=== PATIENT | female | born 1955 | race Caucasian/White ===

== ENCOUNTER → 2016-04-16 | Outpatient (REF) | payer OTHER ==
[2016-04-16 11:16] LABS: BASO % 0.4 % (0.0-1.0); EOS # 0.2 K/mm3 (0.0-0.50); EOS % 4.5 % (0.0-3.0); LARGE UNSTAINED CELL # 0.1 K/mm3 (0.0-0.4); LARGE UNSTAINED CELL % 1.8 % (0.0-4.0); LYMPH # 1.4 K/mm3 (1.5-4.5); LYMPH % 25.7 % (24.0-44.0); MEAN CORPUSCULAR HEMOGLOBIN 31.1 pg (27.0-33.0); MEAN CORPUSCULAR HGB CONC 32.5 g/dl (32.0-36.5); MEAN CORPUSCULAR VOLUME 95.7 fl (80.0-96.0); MONO # 0.3 K/mm3 (0.0-0.8); MONO % 5.9 % (0.0-5.0); NEUTROPHILS # 3.2 K/mm3 (1.8-7.7); NEUTROPHILS % 61.7 % (36.0-66.0); PLATELET COUNT, AUTOMATED 177 k/mm3 (150-450); RED CELL DISTRIBUTION WIDTH 12.4 % (11.5-14.5); WHITE BLOOD COUNT 5.2 K/mm3 (4.0-10.0)
[2016-04-16 11:43] LABS: ALBUMIN 3.7 GM/DL (3.2-5.2); ALBUMIN/GLOBULIN RATIO 1.28 (1.00-1.93); ALKALINE PHOSPHATASE 188 U/L (45-117); ALT/SGPT 48 U/L (12-78); ANION GAP 5 MEQ/L (8-16); AST/SGOT 46 U/L (15-37); BILIRUBIN,TOTAL 0.5 MG/DL (0.2-1.0); BLOOD UREA NITROGEN 20 MG/DL (7-18); CALCIUM LEVEL 9.2 MG/DL (8.8-10.2); CARBON DIOXIDE LEVEL 34 MEQ/L (21-32); CHLORIDE LEVEL 107 MEQ/L (98-107); CHOLESTEROL LEVEL 202 MG/DL (<200); CREATININE FOR GFR 0.81 MG/DL (0.55-1.02); GLOMERULAR FILTRATION RATE > 60.0 (>45); GLUCOSE, FASTING 82 MG/DL (80-110); POTASSIUM SERUM 4.3 MEQ/L (3.5-5.1); SODIUM LEVEL 146 MEQ/L (136-145); TOTAL PROTEIN 6.6 GM/DL (6.4-8.2); TRIGLYCERIDES LEVEL 101 MG/DL (<150)
== END ==
LOC: M SFHCPLAZ 08:34
PROVIDERS: ATTEND Physician Assistant Medical
DX: G47.33 Obstructive sleep apnea (adult) (pediatric) (principal); E78.2 Mixed hyperlipidemia; E55.9 Vitamin D deficiency, unspecified

== ENCOUNTER → 2016-05-26 | Outpatient (CLI) | payer OTHER ==
--- NOTE | 2016-05-26 13:49 | REPMRS ---
Patient History The patient states she had a clinical breast exam in 05/2016. Family history of prostate cancer in father at age 60, ovarian cancer in mother at age 39, and prostate cancer in brother at age 55. Benign excisional biopsy of the left breast, 2008. 2 benign stereotatic breast biopsies of the left breast, 2007. Benign excisional biopsy of the right breast, 2001. Took estrogen for 3 years. Digital Woman Screen Mammo: May 26, 2016 - Exam #: [id number] Bilateral CC and MLO view(s) were taken. Technologist: Abbey Thomas, Technologist Prior study comparison: May 26, 2015, digital woman screen mammo performed at [facility]. May 23, 2014, digital woman screen mammo performed at [facility]. FINDINGS: There are scattered fibroglandular densities. There has been no change in the appearance of the mammogram from the prior studies. There is a mild amount of residual fibroglandular tissue which is fairly symmetric. There is no interval development of dominant mass, architectural distortion, or clustered microcalcification suggestive of malignancy. ASSESSMENT: BI-RADS/ACR category 1 mammogram. Negative. Recommendation Routine screening mammogram in 1 year (for women over age 40). This mammogram was interpreted with the aid of an FDA-approved computer-aided dectection system. Electronically Signed By: Murray Roman MD 05/26/16 0174
== END ==
LOC: M WHC 12:54
PROVIDERS: ATTEND Nurse Practitioner Family
DX: Z12.31 Encounter for screening mammogram for malignant neoplasm of breast (principal)

== ENCOUNTER → 2017-03-10 | Outpatient (CLI) | payer OTHER ==
[2017-03-10 10:49] LABS: HEMATOCRIT 41.7 % (36.0-47.0); HEMOGLOBIN 13.7 g/dl (12.0-16.0); MEAN CORPUSCULAR HGB CONC 32.9 g/dl (32.0-36.5); MEAN CORPUSCULAR VOLUME 94.3 fl (80.0-96.0); PLATELET COUNT, AUTOMATED 212 10^3/uL (150-450); RED BLOOD COUNT 4.42 10^6/uL (4.00-5.40); RED CELL DISTRIBUTION WIDTH 11.9 % (11.5-14.5); WHITE BLOOD COUNT 6.6 10^3/uL (4.0-10.0)
[2017-03-10 10:56] LABS: APPEARANCE, URINE CLEAR (CLEAR); BACTERIA, URINE AUTO NEGATIVE (NEGATIVE); BILIRUBIN, URINE AUTO NEGATIVE (NEGATIVE); BLOOD, URINE BLOOD NEGATIVE (NEGATIVE); COLOR, URINE YELLOW (YELLOW); GLUCOSE, URINE (UA) AUTO NEGATIVE (NEGATIVE); KETONE, URINE AUTO NEGATIVE (NEGATIVE); LEUKOCYTE ESTERASE, URINE AUTO NEGATIVE (NEGATIVE); MUCUS, URINE SMALL (NEGATIVE); NITRITE, URINE AUTO NEGATIVE (NEGATIVE); PROTEIN, URINE AUTO NEGATIVE (NEGATIVE); RBC, URINE AUTO 1 /HPF (0-3); SPECIFIC GRAVITY URINE AUTO 1.006 (1.002-1.035); SQUAMOUS EPITHELIAL CELL UR AU 1 /HPF (0-6); UROBILINOGEN, URINE AUTO 0.2 mg/dL (0.0-2.0); WBC, URINE AUTO 0 /HPF (0-3)
[2017-03-10 10:58] LABS: INR 0.94; PROTHROMBIN TIME 12.7 SECONDS (12.4-14.5)
[2017-03-10 11:04] LABS: ALBUMIN/GLOBULIN RATIO 1.14 (1.00-1.93); ALKALINE PHOSPHATASE 180 U/L (45-117); ALT/SGPT 34 U/L (12-78); ANION GAP 5 MEQ/L (8-16); AST/SGOT 28 U/L (7-37); BILIRUBIN,TOTAL 0.6 MG/DL (0.2-1.0); BLOOD UREA NITROGEN 17 MG/DL (7-18); CALCIUM LEVEL 9.1 MG/DL (8.8-10.2); CARBON DIOXIDE LEVEL 33 MEQ/L (21-32); CHLORIDE LEVEL 104 MEQ/L (98-107); CREATININE FOR GFR 0.78 MG/DL (0.55-1.02); GLOMERULAR FILTRATION RATE > 60.0 (>45); GLUCOSE, FASTING 84 MG/DL (80-110); POTASSIUM SERUM 4.2 MEQ/L (3.5-5.1); SODIUM LEVEL 142 MEQ/L (136-145); TOTAL PROTEIN 7.5 GM/DL (6.4-8.2)
[2017-03-10 11:26] LABS: ERYTHROCYTE SEDIMENTATION RATE 33 mm/hr (0-30)
== END ==
LOC: M ADMPAT 09:01
DX: Z01.818 Encounter for other preprocedural examination (principal); M17.11 Unilateral primary osteoarthritis, right knee
CPT/HCPCS: 71046

== ENCOUNTER 2017-03-21 06:27 | Inpatient (IN) | payer OTHER ==
[2017-03-21] MEDS ORDERED: LR 1,000 ML IV (06:45)
[2017-03-21] MEDS ORDERED: LIDOCAINE 1% MDV 20ML VIAL SQ (06:45)
[2017-03-21] MEDS: LR 1,000 ML IV ×3 (08:21→13:45)
[2017-03-21] MEDS: ACETAMINOPHEN 500 MG TAB PO (08:21)
[2017-03-21] MEDS ORDERED: fentaNYL 100 MCG/2 ML INJECTION (J3010) As Ordered ×2 (09:01→09:59)
[2017-03-21] MEDS ORDERED: MIDAZOLAM INJ 2 MG/2 ML VIAL (J2250) As Ordered ×3 (09:01→10:48)
[2017-03-21] MEDS: MIDAZOLAM INJ 2 MG/2 ML VIAL (J2250) IV ×2 (09:23→09:24)
[2017-03-21] MEDS: fentaNYL 100 MCG/2 ML INJECTION (J3010) IV (09:23)
[2017-03-21] MEDS ORDERED: PROPOFOL 200 MG/20 ML VIAL As Ordered ×5 (09:59→12:06)
[2017-03-21] MEDS ORDERED: LIDOCAINE 1% MDV 20ML VIAL (10:54)
[2017-03-21] MEDS ORDERED: ROPIvacaine 0.5% 30 ML INJECTION (J2795 PER 1MG) (10:54)
[2017-03-21] MEDS ORDERED: dexameTHASONE 10 MG/1 ML VIAL PRES.FREE (J1100) (10:54)
[2017-03-21] MEDS: EPINEPHrine INJ 1 MG/ML 1ML AMP As Ordered (10:56)
[2017-03-21] MEDS: TRANEXAMIC ACID 100 MG/ML 10ML VIAL As Ordered (10:56)
[2017-03-21] MEDS: ceFAZolin 1GM INJ (J0690 PER 500MG) As Ordered (10:57)
[2017-03-21] MEDS: BUPIVACAINE LIPOSOME/PF 1.3% 20 ML VIAL (13.3MG/ML)(EXPAREL) As Ordered (12:18)
[2017-03-21] MEDS: BUPIVACAINE HCL 0.25% 30 ML VIAL As Ordered (12:19)
[2017-03-21] MEDS ORDERED: MORPHINE 1MG/ML IN 0.9% NACL 100ML IV BAG As Ordered (12:41)
[2017-03-21] MEDS ORDERED: NALOXONE INJ 0.4 MG/1 ML VIAL (J2310) IV (13:00)
[2017-03-21] MEDS ORDERED: ONDANSETRON 4MG/2ML VIAL (J2405) IV ×2 (13:00→13:45)
[2017-03-21] MEDS ORDERED: NALBUPHINE HCL 10 MG/ML AMP (J2300) IV (13:00)
[2017-03-21] MEDS ORDERED: diphenhydrAMINE INJ 50MG/ML VIAL (J1200) IV (13:00)
[2017-03-21] MEDS ORDERED: EPIDURAL/PCA KEYS XX (13:00)
[2017-03-21] MEDS: MORPHINE 1MG/ML IN 0.9% NACL 100ML IV BAG IV (13:15)
[2017-03-21] MEDS ORDERED: HYDROmorphone HCL 1 MG/ML SYRINGE (J1170) IV (13:45)
[2017-03-21] MEDS ORDERED: fentaNYL 100 MCG/2 ML INJECTION (J3010) IV (13:45)
[2017-03-21] MEDS ORDERED: ACETAMINOPHEN TAB 650MG DOSE (2X325MG) PO (13:45)
[2017-03-21] MEDS ORDERED: PERCOCET 5MG/325MG TAB PO (13:45)
[2017-03-21] MEDS ORDERED: FLEET ENEMA PR (13:45)
[2017-03-21 16:34] LABS: HEMATOCRIT 37.6 % (36.0-47.0); HEMOGLOBIN 12.4 g/dl (12.0-16.0); MEAN CORPUSCULAR HEMOGLOBIN 31.2 pg (27.0-33.0); MEAN CORPUSCULAR VOLUME 94.5 fl (80.0-96.0); PLATELET COUNT, AUTOMATED 184 10^3/uL (150-450); RED BLOOD COUNT 3.98 10^6/uL (4.00-5.40); WHITE BLOOD COUNT 11.2 10^3/uL (4.0-10.0)
[2017-03-21 16:55] LABS: ANION GAP 6 MEQ/L (8-16); BLOOD UREA NITROGEN 15 MG/DL (7-18); CALCIUM LEVEL 8.2 MG/DL (8.8-10.2); CARBON DIOXIDE LEVEL 28 MEQ/L (21-32); CHLORIDE LEVEL 108 MEQ/L (98-107); CREATININE FOR GFR 0.77 MG/DL (0.55-1.02); GLOMERULAR FILTRATION RATE > 60.0 (>45); GLUCOSE, FASTING 208 MG/DL (80-110); POTASSIUM SERUM 3.9 MEQ/L (3.5-5.1); SODIUM LEVEL 142 MEQ/L (136-145)
[2017-03-21] MEDS: VENLAFAXINE **XR** 75MG CAPSULE PO (17:49)
[2017-03-21] MEDS: WARFARIN SOD 5 MG TAB PO (17:49)
[2017-03-21] MEDS: ASCORBIC ACID 500 MG TAB PO (20:28)
[2017-03-21] MEDS: ROSUVASTATIN 10 MG TAB (CRESTOR) PO (20:28)
[2017-03-22] MEDS ORDERED: ONDANSETRON 4 MG TAB (S0181) PO (06:45)
[2017-03-22] MEDS ORDERED: PERCOCET 5MG/325MG TAB PO (06:45)
[2017-03-22 07:40] LABS: HEMOGLOBIN 11.5 g/dl (12.0-16.0); MEAN CORPUSCULAR HGB CONC 32.9 g/dl (32.0-36.5); MEAN CORPUSCULAR VOLUME 94.3 fl (80.0-96.0); PLATELET COUNT, AUTOMATED 181 10^3/uL (150-450); RED BLOOD COUNT 3.71 10^6/uL (4.00-5.40); WHITE BLOOD COUNT 11.9 10^3/uL (4.0-10.0)
[2017-03-22 07:48] LABS: INR 1.23; PROTHROMBIN TIME 15.8 SECONDS (12.4-14.5)
[2017-03-22 07:58] LABS: ANION GAP 7 MEQ/L (8-16); BLOOD UREA NITROGEN 14 MG/DL (7-18); CALCIUM LEVEL 8.5 MG/DL (8.8-10.2); CARBON DIOXIDE LEVEL 27 MEQ/L (21-32); CHLORIDE LEVEL 106 MEQ/L (98-107); GLOMERULAR FILTRATION RATE > 60.0 (>45); GLUCOSE, FASTING 122 MG/DL (80-110); POTASSIUM SERUM 3.8 MEQ/L (3.5-5.1); SODIUM LEVEL 140 MEQ/L (136-145)
[2017-03-22] MEDS: VITAMIN B COMPLEX/VIT C CAP PO (09:29)
[2017-03-22] MEDS: MIRALAX *UNIT DOSE* 17GM PACKET PO (09:29)
[2017-03-22] MEDS: MOM 30ML SUSPENSION UDC PO (09:29)
[2017-03-22] MEDS: SENOKOT S TAB PO (09:30)
[2017-03-22] MEDS: VITAMIN D 1,000 INTERNATIONAL UNITS TABLET PO (09:30)
[2017-03-22] MEDS: VENLAFAXINE **XR** 75MG CAPSULE PO (09:30)
[2017-03-22] MEDS: PERCOCET 5MG/325MG TAB PO ×2 (09:30→13:39)
[2017-03-22] MEDS: ASCORBIC ACID 500 MG TAB PO (09:30)
[2017-03-22] MEDS: MULTIVITAMINS/MINERALS THERAP 1 TAB PO (09:30)
[2017-03-22] MEDS ORDERED: WARFARIN SOD 5 MG TAB PO (17:00)
== END 2017-03-22 14:10 | disposition home health service (06) | DRG 470 ==
LOC: M OR 06:27 → M MS5PR 14:05
PROC: 0SRC0J9 Replacement of Right Knee Joint with Synthetic Substitute, Cemented, Open Approach (ICD-10-PCS; principal; 2017-03-21 10:17)
DX: M17.11 Unilateral primary osteoarthritis, right knee (principal); Z79.899 Other long term (current) drug therapy; F41.9 Anxiety disorder, unspecified; K21.9 Gastro-esophageal reflux disease without esophagitis; E66.01 Morbid (severe) obesity due to excess calories; Z86.711 Personal history of pulmonary embolism; G47.33 Obstructive sleep apnea (adult) (pediatric); E78.5 Hyperlipidemia, unspecified

== ENCOUNTER → 2017-03-24 | Outpatient (REF) | payer OTHER ==
[2017-03-24 15:31] LABS: INR 2.68; PROTHROMBIN TIME 29.6 SECONDS (12.4-14.5)
== END ==
LOC: M LAB REF 14:44
DX: Z79.01 Long term (current) use of anticoagulants (principal)

== ENCOUNTER → 2017-04-14 | Outpatient (REF) | payer OTHER ==
[2017-04-14 14:14] LABS: INR 2.08; PROTHROMBIN TIME 24.1 SECONDS (12.4-14.5)
== END ==
LOC: M LAB REF 13:36
DX: Z79.01 Long term (current) use of anticoagulants (principal)

== ENCOUNTER → 2017-05-02 | Outpatient (CLI) | payer OTHER ==
[2017-05-02 09:25] LABS: URIC ACID 4.5 MG/DL (2.6-6.0)
[2017-05-02 09:25] LABS: C REACTIVE PROTEIN QUANTITATIV 0.42 MG/DL (0.00-0.30); RHEUMATOID FACTOR QUANT < 10.0 IU/ML (0-15.0)
[2017-05-02 10:03] LABS: ERYTHROCYTE SEDIMENTATION RATE 33 mm/hr (0-30)
== END ==
LOC: M LAB 08:29
DX: M17.0 Bilateral primary osteoarthritis of knee (principal)
CPT/HCPCS: 84550

== ENCOUNTER → 2017-05-27 | Outpatient (CLI) | payer OTHER | LOC: M WHC 09:36 | DX: Z12.31 Encounter for screening mammogram for malignant neoplasm of breast (principal) ==

== ENCOUNTER → 2017-11-09 | Outpatient (CLI) | payer OTHER ==
[2017-11-09 12:30] LABS: HEMATOCRIT 39.9 % (36.0-47.0); MEAN CORPUSCULAR HEMOGLOBIN 30.7 pg (27.0-33.0); MEAN CORPUSCULAR HGB CONC 32.6 g/dl (32.0-36.5); MEAN CORPUSCULAR VOLUME 94.3 fl (80.0-96.0); PLATELET COUNT, AUTOMATED 215 10^3/uL (150-450); RED BLOOD COUNT 4.23 10^6/uL (4.00-5.40); RED CELL DISTRIBUTION WIDTH 12.7 % (11.5-14.5); WHITE BLOOD COUNT 5.6 10^3/uL (4.0-10.0)
[2017-11-09 12:41] LABS: INR 0.96; PROTHROMBIN TIME 12.9 SECONDS (12.1-14.4)
[2017-11-09 13:00] LABS: ERYTHROCYTE SEDIMENTATION RATE 35 mm/hr (0-30)
[2017-11-09 13:27] LABS: ALBUMIN 3.9 GM/DL (3.2-5.2); ALBUMIN/GLOBULIN RATIO 1.11 (1.00-1.93); ALKALINE PHOSPHATASE 163 U/L (45-117); ALT/SGPT 31 U/L (12-78); ANION GAP 9 MEQ/L (8-16); AST/SGOT 27 U/L (7-37); BILIRUBIN,TOTAL 0.5 MG/DL (0.2-1.0); BLOOD UREA NITROGEN 15 MG/DL (7-18); CALCIUM LEVEL 9.5 MG/DL (8.8-10.2); CARBON DIOXIDE LEVEL 30 MEQ/L (21-32); CHLORIDE LEVEL 104 MEQ/L (98-107); CREATININE FOR GFR 0.71 MG/DL (0.55-1.30); GLOMERULAR FILTRATION RATE > 60.0 (>45); GLUCOSE, FASTING 82 MG/DL (70-100); SODIUM LEVEL 143 MEQ/L (136-145); TOTAL PROTEIN 7.4 GM/DL (6.4-8.2)
== END ==
LOC: M LAB 11:44
DX: Z01.818 Encounter for other preprocedural examination (principal)
CPT/HCPCS: 71046

== ENCOUNTER 2017-11-29 06:28 | Inpatient (IN) | payer OTHER ==
[2017-11-29] MEDS: ACETAMINOPHEN 500 MG TAB PO (07:00)
[2017-11-29] MEDS ORDERED: EPINEPHrine INJ 1 MG/ML 1ML AMP As Ordered (07:05)
[2017-11-29] MEDS ORDERED: dexameTHASONE 10 MG/1 ML VIAL PRES.FREE (J1100) As Ordered (07:05)
[2017-11-29] MEDS: LR 1,000 ML IV ×4 (07:13→23:12)
[2017-11-29] MEDS ORDERED: MIDAZOLAM INJ 2 MG/2 ML VIAL (J2250) As Ordered ×2 (07:21→08:16)
[2017-11-29] MEDS ORDERED: fentaNYL 100 MCG/2 ML INJECTION (J3010) As Ordered ×2 (07:21→08:16)
[2017-11-29] MEDS: fentaNYL 100 MCG/2 ML INJECTION (J3010) IV (07:40)
[2017-11-29] MEDS: MIDAZOLAM INJ 2 MG/2 ML VIAL (J2250) IV (07:40)
[2017-11-29] MEDS ORDERED: PROPOFOL 200 MG/20 ML VIAL As Ordered ×8 (08:15→10:02)
[2017-11-29] MEDS: ceFAZolin SOD 1 GM in D5W MINI-BAG PLUS 50 ML IV (08:47)
[2017-11-29] MEDS ORDERED: ONDANSETRON 4MG/2ML VIAL (J2405) As Ordered (09:03)
[2017-11-29] MEDS ORDERED: dexameTHASONE 4 MG/ML 1ML VIAL (J1100) As Ordered ×3 (09:03)
[2017-11-29] MEDS ORDERED: ROPIvacaine 0.5% 30 ML INJECTION (J2795 PER 1MG) (09:13)
[2017-11-29] MEDS: ceFAZolin 1GM INJ (J0690 PER 500MG) As Ordered (09:16)
[2017-11-29] MEDS: EPINEPHrine INJ 1 MG/ML 1ML AMP As Ordered (09:17)
[2017-11-29] MEDS: TRANEXAMIC ACID 100 MG/ML 10ML VIAL As Ordered (09:18)
[2017-11-29] MEDS ORDERED: PHENYLephrine HCL 500 MCG/5 ML (100MCG/ML) SYRINGE (J2370) As Ordered (09:21)
[2017-11-29] MEDS: BUPIVACAINE HCL 0.25% 10 ML VIAL As Ordered (09:58)
[2017-11-29] MEDS: BUPIVACAINE LIPOSOME/PF 1.3% 20 ML VIAL (13.3MG/ML)(EXPAREL) As Ordered (09:59)
[2017-11-29] MEDS ORDERED: MORPHINE 1MG/ML IN 0.9% NACL 100ML IV BAG As Ordered (10:24)
[2017-11-29] MEDS ORDERED: fentaNYL 100 MCG/2 ML INJECTION (J3010) IV (11:00)
[2017-11-29] MEDS ORDERED: NORCO, ANEXSIA 5/325MG TABLET (HYDROcodone/ACETAMINOPHEN) PO (11:00)
[2017-11-29] MEDS ORDERED: ONDANSETRON 4MG/2ML VIAL (J2405) IV ×2 (11:00→11:15)
[2017-11-29] MEDS ORDERED: NALOXONE INJ 0.4 MG/1 ML VIAL (J2310) IV (11:15)
[2017-11-29] MEDS ORDERED: EPIDURAL/PCA KEYS XX (11:15)
[2017-11-29] MEDS ORDERED: diphenhydrAMINE INJ 50MG/ML VIAL (J1200) IV (11:15)
[2017-11-29] MEDS ORDERED: NALBUPHINE HCL 10 MG/ML AMP (J2300) IV (11:15)
[2017-11-29] MEDS ORDERED: MORPHINE 1MG/ML IN 0.9% NACL 100ML IV BAG IV (11:15)
[2017-11-29] MEDS ORDERED: FLEET ENEMA PR (11:15)
[2017-11-29] MEDS ORDERED: ALPRAZolam 0.25 MG TAB PO (16:45)
[2017-11-29] MEDS ORDERED: ALBUTEROL 90 MCG/ACT 8GM HFA INHALER INH (16:45)
[2017-11-29] MEDS: VENLAFAXINE **XR** 75MG CAPSULE PO (18:26)
[2017-11-30] MEDS: ACETAMINOPHEN TAB 650MG DOSE (2X325MG) PO (01:57)
[2017-11-30] MEDS ORDERED: ONDANSETRON 4 MG TAB (S0181) PO (06:45)
[2017-11-30] MEDS ORDERED: PERCOCET 5MG/325MG TAB PO (06:45)
[2017-11-30 06:59] LABS: HEMATOCRIT 35.4 % (36.0-47.0); HEMOGLOBIN 11.5 g/dl (12.0-15.5); MEAN CORPUSCULAR HEMOGLOBIN 31.2 pg (27.0-33.0); MEAN CORPUSCULAR HGB CONC 32.5 g/dl (32.0-36.5); MEAN CORPUSCULAR VOLUME 95.9 fl (80.0-96.0); PLATELET COUNT, AUTOMATED 180 10^3/uL (150-450); RED BLOOD COUNT 3.69 10^6/uL (4.00-5.40); RED CELL DISTRIBUTION WIDTH 12.2 % (11.5-14.5); WHITE BLOOD COUNT 14.2 10^3/uL (4.0-10.0)
[2017-11-30 07:14] LABS: ANION GAP 8 MEQ/L (8-16); BLOOD UREA NITROGEN 16 MG/DL (7-18); CALCIUM LEVEL 8.6 MG/DL (8.8-10.2); CARBON DIOXIDE LEVEL 29 MEQ/L (21-32); CHLORIDE LEVEL 105 MEQ/L (98-107); GLOMERULAR FILTRATION RATE > 60.0 (>45); GLUCOSE, FASTING 115 MG/DL (70-100); POTASSIUM SERUM 3.8 MEQ/L (3.5-5.1); SODIUM LEVEL 142 MEQ/L (136-145)
[2017-11-30] MEDS: PERCOCET 5MG/325MG TAB PO (08:30)
[2017-11-30] MEDS: MIRALAX *UNIT DOSE* 17GM PACKET PO (09:29)
[2017-11-30] MEDS: LORATADINE 10 MG TAB PO (09:30)
[2017-11-30] MEDS: VENLAFAXINE **XR** 75MG CAPSULE PO (09:30)
[2017-11-30] MEDS: FUROSEMIDE 40 MG TAB PO (09:30)
[2017-11-30] MEDS: LANSOPRAZOLE SUSPENSION 30 MG/10 ML ORAL SYRINGE (FIRST-LANSOPRAZOLE) PO (09:30)
[2017-11-30] MEDS: ROSUVASTATIN 10 MG TAB (CRESTOR) PO (09:30)
[2017-11-30] MEDS: INFLUENZA QUADRIVALENT PF VACCINE 0.5ML SYRINGE (90686) IM (09:31)
[2017-11-30] MEDS ORDERED: RIVAROXABAN 10 MG TAB (XARELTO) PO (18:00)
== END 2017-11-30 10:24 | disposition home health service (06) | DRG 470 ==
LOC: M OR 06:28 → M MS5PR 12:00
PROC: 0SRD0J9 Replacement of Left Knee Joint with Synthetic Substitute, Cemented, Open Approach (ICD-10-PCS; principal; 2017-11-29 08:25)
DX: M17.12 Unilateral primary osteoarthritis, left knee (principal); Z79.899 Other long term (current) drug therapy; E78.5 Hyperlipidemia, unspecified; K21.9 Gastro-esophageal reflux disease without esophagitis; Z96.651 Presence of right artificial knee joint; Z87.891 Personal history of nicotine dependence; F32.9 Major depressive disorder, single episode, unspecified

== ENCOUNTER → 2017-12-21 | Outpatient (CLI) | payer OTHER | LOC: M RAD 06:26 | DX: R60.9 Edema, unspecified (principal) | CPT/HCPCS: 93971 ==

== ENCOUNTER → 2018-05-29 | Outpatient (CLI) | payer OTHER ==
[~2018-05-29] MED LIST: ASPI1TAB20 PO; ASPI325T25 PO; CALC600T57 PO; CLAR10CA3 PO; COUM2.5T17 PO; CRES10TA32 PO; FLON1SPR; FURO40TA2 PO; MELO15TA28 PO; MULT1TAB10 PO; PERC5TAB12 PO; PREV15CA18 PO; TRAM50TA2 PO; VENL150C43 PO; VENTAER INH; VITA10002 PO; VITA200016 PO; VITA500C24 PO; VITATAB11 PO; XANA0.25 PO; XARE10TA PO
--- NOTE | 2018-05-29 12:17 | REPMRS ---
Patient History The patient states she had a clinical breast exam in 05/2018. Family history of ovarian cancer at age 39 in mother, prostate cancer at age 60 in father, prostate cancer at age 55 in brother. Benign excisional biopsy of the left breast, 2009. 2 benign stereotatic breast biopsies of the left breast, 2007. Benign excisional biopsy of the right breast, 2001. Took estrogen for 3 years. 3D TOMOSYNTHESIS WAS PERFORMED. Digital Woman Screen Mammo: May 29, 2018 - Exam #: [id number] Bilateral CC and MLO view(s) were taken. Technologist: Abbey Thomas, Technologist Prior study comparison: May 27, 2017, digital woman screen mammo performed at [facility]. May 26, 2016, digital woman screen mammo performed at [facility]. FINDINGS: There are scattered fibroglandular densities. There has been no change in the appearance of the mammogram from the prior studies. There is a mild amount of residual fibroglandular tissue which is fairly symmetric. There is no interval development of dominant mass, architectural distortion, or clustered microcalcification suggestive of malignancy. Assessment: BI-RADS/ACR category 1 mammogram. Negative Mammogram. Recommendation Routine screening mammogram in 1 year (for women over age 40). This mammogram was interpreted with the aid of an FDA-approved computer-aided dectection system. Electronically Signed By: Murray Roman MD 05/29/18 [id number]
== END ==
LOC: M WHC 10:32
PROVIDERS: ATTEND Nurse Practitioner Family
DX: Z12.31 Encounter for screening mammogram for malignant neoplasm of breast (principal)

== ENCOUNTER → 2018-06-05 | Outpatient (REF) | payer OTHER ==
[2018-06-05 13:05] LABS: BASO % 0.8 % (0.0-1.0); EOS # 0.3 10^3/uL (0.0-0.50); EOS % 5.5 % (0.0-3.0); HEMATOCRIT 38.3 % (36.0-47.0); HEMOGLOBIN 12.2 g/dl (12.0-15.5); LYMPH # 1.6 10^3/uL (1.5-4.5); LYMPH % 29.6 % (24.0-44.0); MEAN CORPUSCULAR HEMOGLOBIN 30.5 pg (27.0-33.0); MEAN CORPUSCULAR HGB CONC 31.9 g/dl (32.0-36.5); MEAN CORPUSCULAR VOLUME 95.8 fl (80.0-96.0); MONO # 0.4 10^3/uL (0.0-0.8); MONO % 7.4 % (0.0-5.0); NEUTROPHILS % 56.5 % (36.0-66.0); PLATELET COUNT, AUTOMATED 187 10^3/uL (150-450); WHITE BLOOD COUNT 5.3 10^3/uL (4.0-10.0)
[2018-06-05 13:41] LABS: ALBUMIN 3.6 GM/DL (3.2-5.2); ALT/SGPT 28 U/L (12-78); BILIRUBIN,TOTAL 0.5 MG/DL (0.2-1.0); BLOOD UREA NITROGEN 18 MG/DL (7-18); CALCIUM LEVEL 8.8 MG/DL (8.8-10.2); CARBON DIOXIDE LEVEL 30 MEQ/L (21-32); CHLORIDE LEVEL 107 MEQ/L (98-107); CHOLESTEROL LEVEL 188 MG/DL (<200); CREATININE FOR GFR 0.77 MG/DL (0.55-1.30); GLOMERULAR FILTRATION RATE > 60.0 (>45); GLUCOSE, FASTING 82 MG/DL (70-100); HDL CHOLESTEROL 81 MG/DL (>40); LDL CHOLESTEROL 87 MG/DL (<100); NON-HDL-C 107 MG/DL; POTASSIUM SERUM 4.2 MEQ/L (3.5-5.1); SODIUM LEVEL 144 MEQ/L (136-145); TOTAL 25(OH) VITAMIN D 37.8 NG/ML (30.0-100.0); TOTAL PROTEIN 6.8 GM/DL (6.4-8.2); TRIGLYCERIDES LEVEL 99 MG/DL (<150)
== END ==
LOC: M SFHCADAM 08:26
PROVIDERS: ATTEND Physician Assistant Medical
DX: E66.01 Morbid (severe) obesity due to excess calories (principal); E78.2 Mixed hyperlipidemia; E55.9 Vitamin D deficiency, unspecified

== ENCOUNTER → 2019-06-28 | Outpatient (REF) | payer OTHER ==
[~2019-06-28] MED LIST changes: +ASPI-255 PO; -ASPI1TAB20 PO; -ASPI325T25 PO; +ASPI325T57 PO; +CRES10TA PO; -CRES10TA32 PO; +CYAN100049 PO; -VITA10002 PO
[2019-06-28 13:20] LABS: BASO # 0.1 10^3/uL (0.0-0.2); BASO % 0.7 % (0.0-1.0); EOS # 0.3 10^3/uL (0.0-0.5); EOS % 3.6 % (0.0-3.0); HEMATOCRIT 42.6 % (36.0-47.0); HEMOGLOBIN 13.6 g/dl (12.0-15.5); LYMPH # 1.9 10^3/uL (1.5-5.0); LYMPH % 25.9 % (24.0-44.0); MEAN CORPUSCULAR HEMOGLOBIN 30.9 pg (27.0-33.0); MEAN CORPUSCULAR HGB CONC 31.9 g/dl (32.0-36.5); MEAN CORPUSCULAR VOLUME 96.8 fl (80.0-96.0); MONO # 0.5 10^3/uL (0.0-0.8); MONO % 7.4 % (0.0-5.0); NEUTROPHILS # 4.4 10^3/uL (1.5-8.5); NEUTROPHILS % 62.3 % (36.0-66.0); PLATELET COUNT, AUTOMATED 214 10^3/uL (150-450); WHITE BLOOD COUNT 7.1 10^3/uL (4.0-10.0)
[2019-06-28 13:30] LABS: ALT/SGPT 36 U/L (12-78); BILIRUBIN,TOTAL 0.6 MG/DL (0.2-1.0); BLOOD UREA NITROGEN 13 MG/DL (7-18); CALCIUM LEVEL 9.2 MG/DL (8.8-10.2); CARBON DIOXIDE LEVEL 32 MEQ/L (21-32); CHLORIDE LEVEL 103 MEQ/L (98-107); CHOLESTEROL LEVEL 228 MG/DL (<200); CREATININE FOR GFR 0.69 MG/DL (0.55-1.30); GLOMERULAR FILTRATION RATE > 60.0 (>45); GLUCOSE, FASTING 80 MG/DL (70-100); HDL CHOLESTEROL 97 MG/DL (>40); LDL CHOLESTEROL 114 MG/DL (<100); NON-HDL-C 131 MG/DL; POTASSIUM SERUM 4.2 MEQ/L (3.5-5.1); SODIUM LEVEL 140 MEQ/L (136-145); TOTAL 25(OH) VITAMIN D 39.9 NG/ML (30.0-100.0); TOTAL PROTEIN 7.7 GM/DL (6.4-8.2); TRIGLYCERIDES LEVEL 85 MG/DL (<150)
[2019-06-28 13:47] LABS: HEMOGLOBIN A1c 5.4 %
== END ==
LOC: M SFHCADAM 09:31
PROVIDERS: ATTEND Physician Assistant Medical
DX: E78.2 Mixed hyperlipidemia (principal); G47.33 Obstructive sleep apnea (adult) (pediatric); E55.9 Vitamin D deficiency, unspecified; M17.0 Bilateral primary osteoarthritis of knee

== ENCOUNTER → 2019-07-31 | Outpatient (REF) | payer OTHER ==
[2019-07-31 20:34] LABS: APPEARANCE, URINE CLEAR (CLEAR); BACTERIA, URINE AUTO 3+ (NEGATIVE); BILIRUBIN, URINE AUTO NEGATIVE (NEGATIVE); BLOOD, URINE BLOOD 1+ (NEGATIVE); COLOR, URINE YELLOW (YELLOW); GLUCOSE, URINE (UA) AUTO NEGATIVE (NEGATIVE); KETONE, URINE AUTO TRACE mg/dL (NEGATIVE); LEUKOCYTE ESTERASE, URINE AUTO 1+ (NEGATIVE); MUCUS, URINE SMALL (NEGATIVE); NITRITE, URINE AUTO NEGATIVE (NEGATIVE); PROTEIN, URINE AUTO NEGATIVE (NEGATIVE); RBC, URINE AUTO 2 /HPF (0-3); SPECIFIC GRAVITY URINE AUTO 1.005 (1.002-1.035); SQUAMOUS EPITHELIAL CELL UR AU 1 /HPF (0-6); UROBILINOGEN, URINE AUTO 0.2 mg/dL (0.0-2.0); WBC, URINE AUTO 11 /HPF (0-3)
== END ==
LOC: M SFHCADAM 16:45
PROVIDERS: ATTEND Physician Assistant Medical
DX: R35.0 Frequency of micturition (principal)

== ENCOUNTER → 2019-08-30 | Outpatient (CLI) | payer OTHER ==
--- NOTE | 2019-08-30 10:56 | REPMRS ---
Patient History The patient states she had a clinical breast exam in August 2019. Family history of ovarian cancer at age 39 in mother, prostate cancer at age 60 in father, prostate cancer at age 55 in brother. Benign excisional biopsy of the left breast, 2009. 2 benign stereotatic breast biopsies of the left breast, 2007. Benign excisional biopsy of the right breast, 2001. Took estrogen for 3 years. Digital Woman Screen Mammo: August 30, 2019 - Exam #: [id number] Bilateral CC and MLO view(s) were taken. Technologist: Janine Escudero, Technologist Prior study comparison: May 29, 2018, bilateral digital woman screen mammo performed at [facility]. May 27, 2017, digital woman screen mammo performed at [facility]. May 26, 2016, digital woman screen mammo performed at [facility]. FINDINGS: The breast tissue is almost entirely fat. The Volpara volumetric breast density category is: A. There has been no change in the appearance of the mammogram from the prior studies. There is no interval development of dominant mass, architectural distortion, or grouped microcalcification typical of malignancy. 3-D tomosynthesis shows no additional findings. Assessment: BI-RADS/ACR category 1 mammogram. Negative Mammogram. Recommendation Routine screening mammogram of both breasts in 1 year (for women over age 40). This patient's Lifetime Breast Cancer RIsk is estimated at 5.9 %. This mammogram was interpreted with the aid of an FDA-approved computer-aided dectection system. Electronically Signed By: Nestor Marr MD 08/30/19 1523
== END ==
LOC: M WHC 09:19
PROVIDERS: ATTEND Nurse Practitioner Family
DX: Z12.31 Encounter for screening mammogram for malignant neoplasm of breast (principal)

== ENCOUNTER → 2020-01-01 | Outpatient (REF) | payer OTHER ==
[2020-01-01 12:30] LABS: BASO % 0.7 % (0.0-1.0); EOS # 0.2 10^3/uL (0.0-0.5); EOS % 3.6 % (0.0-3.0); HEMATOCRIT 39.4 % (36.0-47.0); HEMOGLOBIN 12.4 g/dl (12.0-15.5); LYMPH # 1.5 10^3/uL (1.5-5.0); LYMPH % 25.8 % (24.0-44.0); MEAN CORPUSCULAR HEMOGLOBIN 30.2 pg (27.0-33.0); MEAN CORPUSCULAR HGB CONC 31.5 g/dl (32.0-36.5); MEAN CORPUSCULAR VOLUME 95.9 fl (80.0-96.0); MONO # 0.5 10^3/uL (0.0-0.8); MONO % 8.1 % (0.0-5.0); NEUTROPHILS # 3.6 10^3/uL (1.5-8.5); NEUTROPHILS % 61.3 % (36.0-66.0); PLATELET COUNT, AUTOMATED 194 10^3/uL (150-450); RED BLOOD COUNT 4.11 10^6/uL (4.00-5.40); WHITE BLOOD COUNT 5.9 10^3/uL (4.0-10.0)
[2020-01-01 13:15] LABS: ALBUMIN 3.7 GM/DL (3.2-5.2); ALT/SGPT 20 U/L (12-78); BILIRUBIN,TOTAL 0.6 MG/DL (0.2-1.0); BLOOD UREA NITROGEN 17 MG/DL (7-18); CALCIUM LEVEL 9.1 MG/DL (8.8-10.2); CARBON DIOXIDE LEVEL 33 MEQ/L (21-32); CHLORIDE LEVEL 105 MEQ/L (98-107); CHOLESTEROL LEVEL 189 MG/DL (<200); CHOLESTEROL RISK RATIO 2.333 (<5); CREATININE FOR GFR 0.78 MG/DL (0.55-1.30); GLOMERULAR FILTRATION RATE > 60.0 (>45); GLUCOSE, FASTING 85 MG/DL (70-100); HDL CHOLESTEROL 81 MG/DL (>40); LDL CHOLESTEROL 84 MG/DL (<100); NON-HDL-C 108 MG/DL; POTASSIUM SERUM 4.1 MEQ/L (3.5-5.1); SODIUM LEVEL 143 MEQ/L (136-145); TOTAL PROTEIN 6.7 GM/DL (6.4-8.2); TRIGLYCERIDES LEVEL 118 MG/DL (<150)
== END ==
LOC: M SFHCADAM 08:40
PROVIDERS: ATTEND Physician Assistant Medical
DX: E66.01 Morbid (severe) obesity due to excess calories (principal); E78.2 Mixed hyperlipidemia; E55.9 Vitamin D deficiency, unspecified; F41.9 Anxiety disorder, unspecified

== ENCOUNTER → 2020-07-17 | Outpatient (REF) | payer OTHER ==
[2020-07-17 12:34] LABS: APPEARANCE, URINE CLEAR (CLEAR); BACTERIA, URINE AUTO NEGATIVE (NEGATIVE); BILIRUBIN, URINE AUTO NEGATIVE (NEGATIVE); BLOOD, URINE BLOOD NEGATIVE (NEGATIVE); COLOR, URINE STRAW (YELLOW); GLUCOSE, URINE (UA) AUTO NEGATIVE (NEGATIVE); KETONE, URINE AUTO NEGATIVE (NEGATIVE); LEUKOCYTE ESTERASE, URINE AUTO NEGATIVE (NEGATIVE); NITRITE, URINE AUTO NEGATIVE (NEGATIVE); PROTEIN, URINE AUTO NEGATIVE (NEGATIVE); RBC, URINE AUTO 0 /HPF (0-3); SPECIFIC GRAVITY URINE AUTO 1.005 (1.002-1.035); SQUAMOUS EPITHELIAL CELL UR AU 1 /HPF (0-6); UROBILINOGEN, URINE AUTO 0.2 mg/dL (0.0-2.0); WBC, URINE AUTO 0 /HPF (0-3)
== END ==
LOC: M SFHCADAM 10:13
PROVIDERS: ATTEND Physician Assistant Medical
DX: N39.41 Urge incontinence (principal)

== ENCOUNTER → 2020-10-08 | Outpatient (CLI) | payer MEDICARE, OTHER ==
[~2020-10-08] MED LIST changes: -PREV15CA18 PO; +PREV15CA24 PO
--- NOTE | 2020-10-08 12:36 | REPMRS ---
Patient History The patient states she had a clinical breast exam in September 2020. Family history of ovarian cancer at age 39 in mother, prostate cancer at age 60 in father, prostate cancer at age 55 in brother. Benign excisional biopsy of the left breast, 2008. 2 benign stereotatic breast biopsies of the left breast, 2007. Benign excisional biopsy of the right breast, 2001. Took estrogen for 3 years. 10lb unintentional weight gain. Covid vaccines 05/16/20 left arm. 06/06/20 left arm. Patient states no breast complaints today. Patient has signed MRS History Sheet. Digital Woman Screen Mammo: October 08, 2020 - Exam #: [id number] Bilateral CC and MLO view(s) were taken. Technologist: RT Ibis Prior study comparison: August 30, 2019, bilateral digital woman screen mammo performed at [facility]. May 29, 2018, bilateral digital woman screen mammo performed at [facility]. FINDINGS: There are scattered fibroglandular densities. Screening. Digital screening (2D) mammography was performed bilaterally in the CC and MLO projections. Additionally, breast tomosynthesis (3D mammography) was performed bilaterally in the CC and MLO projections. Todays exam was compared to the prior exam/exams. By history, the patient has no complaints of a palpable breast abnormality or other significant breast complaints. The breasts are unchanged in size and shape. There are no desiree-soft tissue densities or spiculated masses. There is stable post-procedural internal architectural distortion.There is no new internal architectural distortion. Calcifications are again seen in the breast/breasts. Some of these are in groups but no one group appears more suspicious than any other. There are no suspicious desiree-calcific clusters. Skin thickening or nipple retraction is not present. IMPRESSION: BI-RADS Category 2- Benign Findings. There is no evidence of malignant alteration of the breasts. Followup examination recommended in one year. The Volpara volumetric breast density category is B, there are scattered areas of fibroglandular densities. This mammogram was read with the assistance of [employer],an FDA approved computer aided detection system for mammography. The lifetime Tyrer-Cuzick score is 7.7 % Negative x-ray reports should not delay surgical consultation if a dominant or clinically suspicious mass is present. Not all breast cancers can be identified by mammography. Therefore, we recommend that you continue to perform regular breast self-examination and physical examination and then promptly contact your physician of any concerns or changes. Adenosis and dense breasts may obscure an underlying neoplasm. Assessment: BI-RADS/ACR category 2 mammogram. Benign Findings. Recommendation Routine screening mammogram of both breasts in 1 year. Electronically Signed By: Jewel Archuleta DO 10/08/20 0322
== END ==
LOC: M WHC 11:21
PROVIDERS: ATTEND Nurse Practitioner Women's Health
DX: Z12.31 Encounter for screening mammogram for malignant neoplasm of breast (principal)

== ENCOUNTER → 2021-01-12 | Outpatient (REF) | payer MEDICARE, OTHER ==
[2021-01-12 12:35] LABS: BASO % 0.4 % (0.0-1.0); EOS # 0.3 10^3/uL (0.0-0.5); EOS % 3.9 % (0.0-3.0); HEMATOCRIT 38.6 % (36.0-47.0); HEMOGLOBIN 12.3 g/dl (12.0-15.5); LYMPH # 1.5 10^3/uL (1.5-5.0); LYMPH % 21.8 % (24.0-44.0); MEAN CORPUSCULAR HEMOGLOBIN 31.9 pg (27.0-33.0); MEAN CORPUSCULAR HGB CONC 31.9 g/dl (32.0-36.5); MEAN CORPUSCULAR VOLUME 100.3 fl (80.0-96.0); MONO # 0.6 10^3/uL (0.0-0.8); MONO % 7.9 % (2.0-8.0); NEUTROPHILS # 4.5 10^3/uL (1.5-8.5); NEUTROPHILS % 65.6 % (36.0-66.0); PLATELET COUNT, AUTOMATED 209 10^3/uL (150-450); RED BLOOD COUNT 3.85 10^6/uL (4.00-5.40); WHITE BLOOD COUNT 6.9 10^3/uL (4.0-10.0)
[2021-01-12 13:49] LABS: ALBUMIN 3.4 GM/DL (3.2-5.2); ALT/SGPT 27 U/L (12-78); BILIRUBIN,TOTAL 0.4 MG/DL (0.2-1.0); BLOOD UREA NITROGEN 15 MG/DL (7-18); CALCIUM LEVEL 9.4 MG/DL (8.8-10.2); CARBON DIOXIDE LEVEL 28 MEQ/L (21-32); CHLORIDE LEVEL 106 MEQ/L (98-107); CHOLESTEROL LEVEL 195 MG/DL (<200); GLOMERULAR FILTRATION RATE > 60.0 (>45); GLUCOSE, FASTING 81 MG/DL (70-100); HDL CHOLESTEROL 78 MG/DL (>40); LDL CHOLESTEROL 90 MG/DL (<100); NON-HDL-C 117 MG/DL; POTASSIUM SERUM 4.5 MEQ/L (3.5-5.1); SODIUM LEVEL 142 MEQ/L (136-145); TOTAL 25(OH) VITAMIN D 53.6 NG/ML (30.0-100.0); TOTAL PROTEIN 6.7 GM/DL (6.4-8.2); TRIGLYCERIDES LEVEL 135 MG/DL (<150)
== END ==
LOC: M SFHCADAM 08:43
PROVIDERS: ATTEND Physician Assistant Medical
DX: K21.9 Gastro-esophageal reflux disease without esophagitis (principal); E66.01 Morbid (severe) obesity due to excess calories; E78.2 Mixed hyperlipidemia; F32.9 Major depressive disorder, single episode, unspecified; G47.33 Obstructive sleep apnea (adult) (pediatric); E55.9 Vitamin D deficiency, unspecified; R03.0 Elevated blood-pressure reading, without diagnosis of hypertension; N39.41 Urge incontinence

== ENCOUNTER → 2021-01-19 | Outpatient (CLI) | payer MEDICARE, OTHER ==
--- NOTE | 2021-01-19 10:20 | REP ---
INDICATION: ACUTE BRONCHITIS, UNSPECIFIED ORGANISM COMPARISON: 11/09/2017 TECHNIQUE: PA and lateral. FINDINGS: The mediastinum and cardiac silhouette are normal. The lung husain demonstrate chronic appearing changes. No obvious acute consolidation. No effusion or pneumothorax. The skeletal structures are intact and normal. IMPRESSION: Chronic appearing changes suggested. <Electronically signed by Nick Son > 01/19/21 1016
== END ==
LOC: M ADAMS 09:17
PROVIDERS: ATTEND Physician Assistant Medical
DX: J20.9 Acute bronchitis, unspecified (principal); J34.89 Other specified disorders of nose and nasal sinuses
CPT/HCPCS: 71046; 87426; U0003

== ENCOUNTER → 2021-01-19 | Outpatient (REF) | payer MEDICARE, OTHER | LOC: M SFHCADAM 09:17 | PROVIDERS: ATTEND Physician Assistant Medical | DX: J34.89 Other specified disorders of nose and nasal sinuses (principal) ==

== ENCOUNTER → 2021-07-16 | Outpatient (REF) | payer MEDICARE, OTHER ==
[2021-07-16 13:25] LABS: BASO % 0.7 % (0.0-1.0); EOS # 0.2 10^3/uL (0.0-0.5); EOS % 3.9 % (0.0-3.0); HEMATOCRIT 38.7 % (36.0-47.0); HEMOGLOBIN 12.4 g/dl (12.0-15.5); LYMPH # 1.3 10^3/uL (1.5-5.0); LYMPH % 23.8 % (24.0-44.0); MONO # 0.5 10^3/uL (0.0-0.8); MONO % 8.3 % (2.0-8.0); NEUTROPHILS # 3.6 10^3/uL (1.5-8.5); NEUTROPHILS % 63.1 % (36.0-66.0); PLATELET COUNT, AUTOMATED 189 10^3/uL (150-450); RED BLOOD COUNT 3.87 10^6/uL (4.00-5.40); WHITE BLOOD COUNT 5.6 10^3/uL (4.0-10.0)
[2021-07-16 14:14] LABS: ALBUMIN 3.5 GM/DL (3.2-5.2); ALT/SGPT 25 U/L (12-78); BILIRUBIN,TOTAL 0.6 MG/DL (0.2-1.0); BLOOD UREA NITROGEN 14 MG/DL (7-18); CALCIUM LEVEL 9.1 MG/DL (8.8-10.2); CARBON DIOXIDE LEVEL 30 MEQ/L (21-32); CHLORIDE LEVEL 104 MEQ/L (98-107); CHOLESTEROL LEVEL 196 MG/DL (<200); CHOLESTEROL RISK RATIO 2.419 (<5); CREATININE FOR GFR 0.82 MG/DL (0.55-1.30); GLOMERULAR FILTRATION RATE > 60.0 (>45); GLUCOSE, FASTING 87 MG/DL (70-100); HDL CHOLESTEROL 81 MG/DL (>40); LDL CHOLESTEROL 92 MG/DL (<100); NON-HDL-C 115 MG/DL; SODIUM LEVEL 140 MEQ/L (136-145); TOTAL 25(OH) VITAMIN D 47.1 NG/ML (30.0-100.0); TOTAL PROTEIN 6.7 GM/DL (6.4-8.2); TRIGLYCERIDES LEVEL 116 MG/DL (<150)
== END ==
LOC: M SFHCPLAZ 08:52
PROVIDERS: ATTEND Physician Assistant Medical
DX: K21.9 Gastro-esophageal reflux disease without esophagitis (principal); E78.2 Mixed hyperlipidemia; E55.9 Vitamin D deficiency, unspecified; F33.2 Major depressive disorder, recurrent severe without psychotic features; Z79.899 Other long term (current) drug therapy

== ENCOUNTER → 2021-11-05 | Outpatient (CLI) | payer MEDICARE, OTHER | LOC: M WHC 07:58 | PROVIDERS: ATTEND Nurse Practitioner Family | DX: Z12.31 Encounter for screening mammogram for malignant neoplasm of breast (principal) ==

== ENCOUNTER → 2022-02-05 | Outpatient (CLI) | payer MEDICARE, OTHER | LOC: M RAD 07:28 | PROVIDERS: ATTEND Physician Assistant Medical | DX: I10 Essential (primary) hypertension (principal); R10.12 Left upper quadrant pain ==

== ENCOUNTER → 2022-02-11 | Outpatient (CLI) | payer MEDICARE, OTHER | LOC: M LABSMTC 10:56 | PROVIDERS: ATTEND Anesthesiology | DX: Z01.812 Encounter for preprocedural laboratory examination (principal); Z11.52 Encounter for screening for COVID-19 ==

== ENCOUNTER 2022-02-16 10:46 | Day surgery (SDC) | payer MEDICARE, OTHER ==
[~2022-02-16] VITALS: Ht 160 cm; Wt 111.9 kg
[~2022-02-16 10:46] MED LIST changes: +D32000CA PO; +LISI10TA22 PO; +NS 1,000 ML IV ONE; +PANT40TA29 PO; +VITATAB73 PO
[2022-02-16] MEDS ORDERED: propofoL 200 MG/20 ML VIAL As Ordered ONE (12:12)
[2022-02-16] MEDS ORDERED: LIDOCAINE 2% 100MG/5ML SDV (FOR ANES.) As Ordered ONE (12:12)
[2022-02-16] MEDS ORDERED: fentaNYL 100 MCG/2 ML INJECTION As Ordered ONE (12:12)
[2022-02-16 13:28] VITALS: BP 117/59
== END 2022-02-16 13:35 | disposition home or self-care (01) ==
LOC: M OPP 10:46
PROVIDERS: ATTEND Internal Medicine Gastroenterology
DX: Z12.11 Encounter for screening for malignant neoplasm of colon (principal); Z80.0 Family history of malignant neoplasm of digestive organs; K64.4 Residual hemorrhoidal skin tags; K64.8 Other hemorrhoids; K57.30 Diverticulosis of large intestine without perforation or abscess without bleeding; K30 Functional dyspepsia; K29.70 Gastritis, unspecified, without bleeding; Z79.02 Long term (current) use of antithrombotics/antiplatelets; Z79.51 Long term (current) use of inhaled steroids; Z79.82 Long term (current) use of aspirin; Z79.899 Other long term (current) drug therapy; Z99.89 Dependence on other enabling machines and devices; G47.30 Sleep apnea, unspecified; I10 Essential (primary) hypertension; F32.9 Major depressive disorder, single episode, unspecified; F41.9 Anxiety disorder, unspecified; M19.90 Unspecified osteoarthritis, unspecified site; Z80.6 Family history of leukemia; Z80.41 Family history of malignant neoplasm of ovary
CPT/HCPCS: 43239; 88305; G0121; J3010

== ENCOUNTER → 2022-03-11 | Outpatient (CLI) | payer MEDICARE, OTHER ==
[~2022-03-11] MED LIST changes: -NS 1,000 ML IV ONE
== END ==
LOC: M ADAMS 08:57
PROVIDERS: ATTEND Physician Assistant Medical
DX: R05.3 Chronic cough (principal)

== ENCOUNTER → 2022-03-24 | Outpatient (CLI) | payer MEDICARE, OTHER ==
[~2022-03-24] MED LIST changes: +ISOVUE-370 76% 100ML VIAL As Ordered ONE
[2022-03-24 15:05] LABS: BLOOD UREA NITROGEN 13 MG/DL (9-23); CALCIUM LEVEL 8.9 MG/DL (8.3-10.6); CARBON DIOXIDE LEVEL 32 MMOL/L (20-31); CHLORIDE LEVEL 104 MMOL/L (98-107); CREATININE FOR GFR 0.86 MG/DL (0.55-1.30); GLOMERULAR FILTRATION RATE > 60.0 (>45); GLUCOSE, FASTING 83 MG/DL (74-106); POTASSIUM SERUM 3.9 MMOL/L (3.5-5.1); SODIUM LEVEL 143 MMOL/L (136-145)
== END ==
LOC: M LAB 13:54
PROVIDERS: ATTEND Physician Assistant Medical
DX: R11.0 Nausea (principal); R10.12 Left upper quadrant pain; K57.90 Diverticulosis of intestine, part unspecified, without perforation or abscess without bleeding
CPT/HCPCS: 36415; 74170; 80048; Q9967

== ENCOUNTER → 2022-07-01 | Outpatient (CLI) | payer MEDICARE, OTHER ==
[~2022-07-01] MED LIST changes: -ISOVUE-370 76% 100ML VIAL As Ordered ONE
== END ==
LOC: M RAD 11:44
PROVIDERS: ATTEND Physician Assistant Medical
DX: R11.0 Nausea (principal); K21.9 Gastro-esophageal reflux disease without esophagitis; K29.00 Acute gastritis without bleeding
CPT/HCPCS: 78264; A9541

== ENCOUNTER → 2022-07-13 | Outpatient (REF) | payer MEDICARE, OTHER ==
[2022-07-13 13:31] LABS: BASO % 0.4 % (0.0-1.0); EOS # 0.2 10^3/uL (0.0-0.5); EOS % 4.1 % (0.0-3.0); HEMATOCRIT 35.8 % (36.0-47.0); HEMOGLOBIN 11.8 g/dl (12.0-15.5); LYMPH # 1.3 10^3/uL (1.5-5.0); LYMPH % 27.1 % (24.0-44.0); MEAN CORPUSCULAR HEMOGLOBIN 32.5 pg (27.0-33.0); MEAN CORPUSCULAR VOLUME 98.6 fl (80.0-96.0); MONO # 0.4 10^3/uL (0.0-0.8); NEUTROPHILS # 2.9 10^3/uL (1.5-8.5); NEUTROPHILS % 60.4 % (36.0-66.0); PLATELET COUNT, AUTOMATED 201 10^3/uL (150-450); RED BLOOD COUNT 3.63 10^6/uL (4.00-5.40); WHITE BLOOD COUNT 4.9 10^3/uL (4.0-10.0)
[2022-07-13 13:59] LABS: MALB URINE SIEMENS < 3.0 MG/L
[2022-07-13 14:03] LABS: ALBUMIN 3.3 G/DL (3.2-5.2); ALKALINE PHOSPHATASE 213 U/L (46-116); ALT/SGPT 32 U/L (7.0-40); AST/SGOT 15 U/L (<34); BILIRUBIN,TOTAL 0.6 MG/DL (0.3-1.2); BLOOD UREA NITROGEN 16 MG/DL (9-23); CALCIUM LEVEL 8.5 MG/DL (8.3-10.6); CARBON DIOXIDE LEVEL 28 MMOL/L (20-31); CHLORIDE LEVEL 106 MMOL/L (98-107); CHOLESTEROL LEVEL 176 MG/DL (<200); CHOLESTEROL RISK RATIO 2.21 (<5); CREATININE FOR GFR 0.94 MG/DL (0.55-1.30); GLOMERULAR FILTRATION RATE > 60.0 (>45); GLUCOSE, FASTING 77 MG/DL (74-106); HDL CHOLESTEROL 79.5 MG/DL (>40); LDL CHOLESTEROL 79.3 MG/DL (<100); NON-HDL-C 96.5 MG/DL; POTASSIUM SERUM 4.3 MMOL/L (3.5-5.1); SODIUM LEVEL 142 MMOL/L (136-145); TOTAL 25(OH) VITAMIN D 56.7 NG/ML (20.0-100.0); TRIGLYCERIDES LEVEL 86 MG/DL (<150)
== END ==
LOC: M SFHCADAM 09:18
PROVIDERS: ATTEND Physician Assistant Medical
DX: E66.01 Morbid (severe) obesity due to excess calories (principal); E78.2 Mixed hyperlipidemia; E55.9 Vitamin D deficiency, unspecified

== ENCOUNTER → 2023-04-25 | Outpatient (CLI) | payer MEDICARE, OTHER | LOC: M WHC 07:51 | PROVIDERS: ATTEND Nurse Practitioner Family | DX: Z12.31 Encounter for screening mammogram for malignant neoplasm of breast (principal); Z12.39 Encounter for other screening for malignant neoplasm of breast ==

== ENCOUNTER → 2023-05-15 | Outpatient (CLI) | payer MEDICARE, OTHER | LOC: M SLEEP 20:00 | PROVIDERS: ATTEND Internal Medicine Pulmonary Disease | DX: G47.33 Obstructive sleep apnea (adult) (pediatric) (principal) ==

== ENCOUNTER → 2023-06-17 | Outpatient (REF) | payer MEDICARE, OTHER ==
[2023-06-17 17:18] LABS: BASO % 0.5 % (0.0-1.0); EOS # 0.2 10^3/uL (0.0-0.5); EOS % 2.4 % (0.0-3.0); HEMATOCRIT 37.3 % (36.0-47.0); HEMOGLOBIN 11.9 g/dl (12.0-15.5); LYMPH % 26.8 % (24.0-44.0); MEAN CORPUSCULAR HEMOGLOBIN 30.9 pg (27.0-33.0); MEAN CORPUSCULAR HGB CONC 31.9 g/dl (32.0-36.5); MEAN CORPUSCULAR VOLUME 96.9 fl (80.0-96.0); MONO # 0.6 10^3/uL (0.0-0.8); MONO % 8.4 % (2.0-8.0); NEUTROPHILS # 4.6 10^3/uL (1.5-8.5); NEUTROPHILS % 61.6 % (36.0-66.0); PLATELET COUNT, AUTOMATED 213 10^3/uL (150-450); RED BLOOD COUNT 3.85 10^6/uL (4.00-5.40); WHITE BLOOD COUNT 7.4 10^3/uL (4.0-10.0)
[2023-06-17 17:22] LABS: INR 1.01
== END ==
LOC: M SFHCADAM 14:28
PROVIDERS: ATTEND Physician Assistant
DX: Z01.818 Encounter for other preprocedural examination (principal); M20.12 Hallux valgus (acquired), left foot; M20.42 Other hammer toe(s) (acquired), left foot; M79.672 Pain in left foot; G47.33 Obstructive sleep apnea (adult) (pediatric); Z79.82 Long term (current) use of aspirin; Z79.899 Other long term (current) drug therapy; Z99.89 Dependence on other enabling machines and devices; Z80.42 Family history of malignant neoplasm of prostate; Z80.49 Family history of malignant neoplasm of other genital organs; Z87.891 Personal history of nicotine dependence

== ENCOUNTER → 2023-07-19 | Outpatient (REF) | payer MEDICARE, OTHER ==
[2023-07-19 14:19] LABS: HEMATOCRIT 35.8 % (36.0-47.0); HEMOGLOBIN 11.2 g/dl (12.0-15.5); MEAN CORPUSCULAR HEMOGLOBIN 31.3 pg (27.0-33.0); MEAN CORPUSCULAR HGB CONC 31.3 g/dl (32.0-36.5); PLATELET COUNT, AUTOMATED 192 10^3/uL (150-450); RED BLOOD COUNT 3.58 10^6/uL (4.00-5.40); WHITE BLOOD COUNT 4.9 10^3/uL (4.0-10.0)
[2023-07-19 14:32] LABS: HEMOGLOBIN A1c 4.9 % (4.0-6.0)
[2023-07-19 14:39] LABS: ALBUMIN 3.5 G/DL (3.2-5.2); ALKALINE PHOSPHATASE 179 U/L (46-116); ALT/SGPT 30 U/L (7.0-40); AST/SGOT 23 U/L (<34); BILIRUBIN,TOTAL 0.6 MG/DL (0.3-1.2); BLOOD UREA NITROGEN 17 MG/DL (9-23); CALCIUM LEVEL 9.4 MG/DL (8.3-10.6); CARBON DIOXIDE LEVEL 29 MMOL/L (20-31); CHLORIDE LEVEL 108 MMOL/L (98-107); CHOLESTEROL LEVEL 214 MG/DL (<200); CHOLESTEROL RISK RATIO 3.08 (<5); CREATININE FOR GFR 0.91 MG/DL (0.55-1.30); GLOMERULAR FILTRATION RATE > 60.0 (>45); GLUCOSE, FASTING 81 MG/DL (74-106); HDL CHOLESTEROL 69.3 MG/DL (>40); LDL CHOLESTEROL 122.5 MG/DL (<100); NON-HDL-C 144.7 MG/DL; SODIUM LEVEL 142 MMOL/L (136-145); THYROID STIMULATING HORMONE 2.021 uIU/ML (0.55-4.78); TOTAL 25(OH) VITAMIN D 55.3 NG/ML (20.0-100.0); TOTAL PROTEIN 6.1 G/DL (5.7-8.2); TRIGLYCERIDES LEVEL 111 MG/DL (<150)
== END ==
LOC: M SFHCADAM 08:36
PROVIDERS: ATTEND Physician Assistant Medical
DX: I10 Essential (primary) hypertension (principal); E78.2 Mixed hyperlipidemia; G47.33 Obstructive sleep apnea (adult) (pediatric); E55.9 Vitamin D deficiency, unspecified

== ENCOUNTER → 2023-07-26 | Outpatient (REF) | payer MEDICARE, OTHER ==
[2023-07-26 13:13] LABS: FERRITIN 134.4 NG/ML (7.3-270.7)
[2023-07-26 13:14] LABS: FOLATE 23.2 NG/ML (>5.4)
== END ==
LOC: M SFHCADAM 10:17
PROVIDERS: ATTEND Physician Assistant Medical
DX: D64.9 Anemia, unspecified (principal); M25.50 Pain in unspecified joint

== ENCOUNTER → 2024-03-28 | Outpatient (CLI) | payer MEDICARE, OTHER | LOC: M CARPUL 07:56 | PROVIDERS: ATTEND Family Medicine | DX: R01.1 Cardiac murmur, unspecified (principal); I08.3 Combined rheumatic disorders of mitral, aortic and tricuspid valves ==

== ENCOUNTER → 2024-06-21 | Outpatient (CLI) | payer MEDICARE, OTHER | LOC: M WHC 14:17 | PROVIDERS: ATTEND Obstetrics & Gynecology | DX: Z01.419 Encounter for gynecological examination (general) (routine) without abnormal findings (principal); Z53.9 Procedure and treatment not carried out, unspecified reason ==

== ENCOUNTER → 2024-06-21 | Outpatient (CLI) | payer MEDICARE, OTHER | LOC: M WHC 13:00 | PROVIDERS: ATTEND Obstetrics & Gynecology | DX: Z12.31 Encounter for screening mammogram for malignant neoplasm of breast (principal); M81.0 Age-related osteoporosis without current pathological fracture; R92.323 Mammographic fibroglandular density, bilateral breasts ==

== ENCOUNTER → 2024-07-06 | Outpatient (REF) | payer MEDICARE, OTHER ==
[2024-07-06 13:40] LABS: ALBUMIN 3.5 G/DL (3.2-5.2); BILIRUBIN,TOTAL 0.5 MG/DL (0.3-1.2); CHOLESTEROL RISK RATIO 2.59 (<5); CREATININE FOR GFR 0.86 MG/DL (0.55-1.30); GLOMERULAR FILTRATION RATE 73.5 (>45); HDL CHOLESTEROL 75.9 MG/DL (>40); LDL CHOLESTEROL 104.7 MG/DL (<100); NON-HDL-C 121.1 MG/DL; POTASSIUM SERUM 3.7 MMOL/L (3.5-5.1); TOTAL PROTEIN 6.4 G/DL (5.7-8.2)
[2024-07-06 13:42] LABS: THYROID STIMULATING HORMONE 2.484 uIU/ML (0.55-4.78); TOTAL 25(OH) VITAMIN D 61.4 NG/ML (20.0-100.0)
[2024-07-06 13:43] LABS: FREE T4 1.03 NG/DL (0.89-1.76)
[2024-07-06 13:44] LABS: BASO % 0.6 % (0.0-1.0); EOS # 0.3 10^3/uL (0.0-0.5); EOS % 5.7 % (0.0-3.0); HEMATOCRIT 37.1 % (36.0-47.0); HEMOGLOBIN 12.2 g/dl (12.0-15.5); LYMPH # 1.4 10^3/uL (1.5-5.0); LYMPH % 28.5 % (24.0-44.0); MEAN CORPUSCULAR HEMOGLOBIN 31.8 pg (27.0-33.0); MEAN CORPUSCULAR HGB CONC 32.9 g/dl (32.0-36.5); MEAN CORPUSCULAR VOLUME 96.6 fl (80.0-96.0); MONO # 0.5 10^3/uL (0.0-0.8); MONO % 10.1 % (2.0-8.0); NEUTROPHILS # 2.6 10^3/uL (1.5-8.5); NEUTROPHILS % 55.1 % (36.0-66.0); PLATELET COUNT, AUTOMATED 185 10^3/uL (150-450); RED BLOOD COUNT 3.84 10^6/uL (4.00-5.40); WHITE BLOOD COUNT 4.7 10^3/uL (4.0-10.0)
== END ==
LOC: M SFHCADAM 08:27
PROVIDERS: ATTEND Physician Assistant Medical
DX: I10 Essential (primary) hypertension (principal); K21.9 Gastro-esophageal reflux disease without esophagitis; E66.01 Morbid (severe) obesity due to excess calories; E78.2 Mixed hyperlipidemia; E55.9 Vitamin D deficiency, unspecified; Z23 Encounter for immunization

== ENCOUNTER → 2024-09-20 | Outpatient (CLI) | payer MEDICARE, OTHER | LOC: M RAD 08:39 | PROVIDERS: ATTEND Physician Assistant Medical | DX: S40.021A Contusion of right upper arm, initial encounter (principal); Z91.81 History of falling; I80.8 Phlebitis and thrombophlebitis of other sites; X58.XXXA Exposure to other specified factors, initial encounter; Y92.9 Unspecified place or not applicable; Y93.9 Activity, unspecified; Y99.9 Unspecified external cause status ==

== ENCOUNTER → 2024-11-09 | Outpatient (REF) | payer MEDICARE, OTHER | LOC: M PLALAB 10:05 | PROVIDERS: ATTEND Obstetrics & Gynecology | DX: N81.11 Cystocele, midline (principal); R35.0 Frequency of micturition ==

== ENCOUNTER → 2025-01-11 | Outpatient (REF) | payer MEDICARE, OTHER ==
[2025-01-11 14:44] LABS: BASO # 0.1 10^3/uL (0.0-0.2); BASO % 1.0 % (0.0-1.0); EOS # 0.3 10^3/uL (0.0-0.5); EOS % 4.8 % (0.0-3.0); LYMPH # 1.6 10^3/uL (1.5-5.0); LYMPH % 31.2 % (24.0-44.0); MONO # 0.5 10^3/uL (0.0-0.8); MONO % 9.6 % (2.0-8.0); NEUTROPHILS # 2.8 10^3/uL (1.5-8.5); NEUTROPHILS % 53.2 % (36.0-66.0); PLATELET COUNT, AUTOMATED 188 10^3/uL (150-450)
[2025-01-11 15:13] LABS: ALT/SGPT 20.0 U/L (7.0-40); AST/SGOT 27.0 U/L (<34); CALCIUM LEVEL 9.3 MG/DL (8.3-10.6); CARBON DIOXIDE LEVEL 30.0 MMOL/L (20-31); CHLORIDE LEVEL 106.0 MMOL/L (98-107); CHOLESTEROL LEVEL 206.0 MG/DL (<200); CHOLESTEROL RISK RATIO 2.7 (<5); CREATININE FOR GFR 1.0 MG/DL (0.55-1.30); FREE T4 0.91 NG/DL (0.89-1.76); GLOMERULAR FILTRATION RATE 61.0 (>45); LDL CHOLESTEROL 102.2 MG/DL (<100); NON-HDL-C 129.8 MG/DL; POTASSIUM SERUM 4.2 MMOL/L (3.5-5.1); SODIUM LEVEL 143.0 MMOL/L (136-145); TRIGLYCERIDES LEVEL 138.0 MG/DL (<150)
[2025-01-11 15:15] LABS: TOTAL 25(OH) VITAMIN D 57.6 NG/ML (20.0-100.0); VITAMIN B12 LEVEL 324.0 PG/ML (211-911)
== END ==
LOC: M SFHCADAM 07:57
PROVIDERS: ATTEND Physician Assistant Medical
DX: F33.1 Major depressive disorder, recurrent, moderate (principal); K21.9 Gastro-esophageal reflux disease without esophagitis; E78.2 Mixed hyperlipidemia; E55.9 Vitamin D deficiency, unspecified; R06.02 Shortness of breath

== ENCOUNTER → 2025-02-25 | Outpatient (CLI) | payer MEDICARE, OTHER | LOC: M EKG 10:09 | PROVIDERS: ATTEND Internal Medicine Cardiovascular Disease | DX: R55 Syncope and collapse (principal); R00.2 Palpitations; R94.31 Abnormal electrocardiogram [ECG] [EKG]; Z53.9 Procedure and treatment not carried out, unspecified reason ==